=== PATIENT | female | born 1950 | race Caucasian/White ===

== ENCOUNTER 2018-04-05 05:46 | Inpatient (IN) | payer OTHER ==
--- NOTE | 2018-04-04 18:19 | PDANEPAE ---
ANE History of Present Illness back pain, right leg ANE Past Medical History - Cardiovascular History Hx Hypertension: No Hx Arrhythmias: No Hx Chest Pain: No Hx Coronary Artery / Peripheral Vascular Disease: No Hx CHF / Valvular Disease: No Hx Palpitations: No - Pulmonary History Hx COPD: No Hx Asthma/Reactive Airway Disease: No Hx Recent Upper Respiratory Infection: No Hx Oxygen in Use at Home: No Hx Sleep Apnea: No Sleep Apnea Screening Result - Last Documented: Negative Pulmonary History Comment: PNEUMONIA X1 IN PAST - Neurologic History Hx Cerebrovascular Accident: No Hx Seizures: No Hx Dementia: No - Endocrine History Hx Diabetes: No Hypothyroid: Yes Hyperthyroid: No Obesity: no Endocrine History Comment: HYPOTHYROID - Renal History Hx Renal Disorders: No - Liver History Hx Hepatic Disorders: No - Neurological & Psychiatric Hx Hx Neurological and Psychiatric Disorders: Yes Neurological / Psychiatric History Comment: DEPRESSION - ZOLOFT - Cancer History Hx Cancer: No - Congenital Disorder History Hx Congenital Disorders: No - GI History GERD: no Hx Gastrointestinal Disorders: No - Other Health History Other Health History: NEG. SEVERE ANEMIC IN PAST. TOOK IRON RECENTLY FOR MILD SHIFT - HAD GASTRIC BYPASS - Chronic Pain History Chronic Pain: Yes (BACK & R LEG) - Surgical History Prior Surgeries: R KNEE SCOPE. TUBAL LIGATION. COLECTOMY. LASIK. GASTRIC BYPASS. BLEPHOROPLASTY. HYSTERECTOMY. PHLEBECTOMY. BREAST REDUCTION. BRACHIOPLASTY. STOMACH & THIGH REDUCTION. FACELIFT ANE Review of Systems Review of systems is: negative Review of Systems: - Exercise capacity METS (RN): 4 METS ANE Patient History - Allergies Allergies/Adverse Reactions: cefaclor [From Ceclor] Allergy (Verified 03/22/18 11:08) Rash/Itching morphine Allergy (Verified 03/22/18 11:08) Itching - Home Medications Home medications: home medication list seen and reviewed Home Medications: Acetaminophen [Tylenol 650/20.3ML Oral Liq (*)] 650 mg PO Q4HRS PRN 03/22/18 [ Last Taken Unknown] Biest Compounded Caps 1 each PO DAILY 03/22/18 [Last Taken Unknown] Herbals/Supplements -Info Only 1 ea PO DAILY 03/22/18 [Last Taken Unknown] Hydrocodone/Acetaminophen [[place] 5/325 (*)] 1 tab PO DAILY PRN 03/22/18 [Last Taken Unknown] Levothyroxine [Synthroid 175 mcg (*)] 175 mcg PO DAILY06 03/22/18 [Last Taken Unknown] Liothyronine Sodium [Cytomel 5 mcg (*)] 10 mcg PO DAILY 03/22/18 [Last Taken Unknown] Sertraline HCl [Zoloft 100mg (*)] 300 mg PO DAILY 03/22/18 [Last Taken Unknown] - NPO status NPO Status: no food or drink >8 hours - Anes Hx Anes Hx: slow to awaken from anesthesia - Smoking Hx Smoking Status: Never smoked Marijuana use: No - Alcohol Use Alcohol Use: Rarely - Family Anes Hx Family Anes Hx: none Family Hx Anesthesia Complications: NEG ANE Labs/Vital Signs - Vital Signs Height: 170.18 cm Weight: 83.461 kg ANE Physical Exam - Airway Neck exam: FROM Mallampati Score: Class 2 Mouth exam: normal dental/mouth exam - Pulmonary Pulmonary: no respiratory distress, clear to auscultation - Cardiovascular Cardiovascular: regular rate and rhythym, no murmur, rub, or gallop - ASA Status ASA Status: II ANE Anesthesia Plan Anesthesia Plan: general endotracheal anesthesia (neuro monitoring)
[2018-04-05] MEDS ORDERED: ACETAMINOPHEN 500 MG TAB PO ONE (05:52)
[2018-04-05] MEDS ORDERED: GABAPENTIN 300 MG CAP PO ONE (05:52)
[2018-04-05] MEDS ORDERED: ceFAZolin 2 GM/DEXTROSE 100 ML IV ONE (05:52)
[2018-04-05] MEDS ORDERED: LR 1,000 ML IV ONE (05:53)
[2018-04-05] MEDS ORDERED: LIDOCAINE 1% 2 ML INJ ID PRN (05:53)
[2018-04-05] MEDS ORDERED: PROPOFOL 200 MG/20 ML VIAL ONE (06:42)
[2018-04-05] MEDS ORDERED: LIDOCAINE 2% 5 ML SDV ONE (06:42)
[2018-04-05] MEDS ORDERED: SUCCINYLCHOLINE CHLORIDE 200 MG/10 ML SYR IVP ONE (06:42)
[2018-04-05] MEDS ORDERED: fentaNYL 250 MCG/5 ML INJ ONE (06:42)
[2018-04-05] MEDS ORDERED: BACITRACIN 50,000 UNITS/10 ML SYR IRR ONE (06:46)
[2018-04-05] MEDS ORDERED: BUPIVACAINE/EPI 0.25% 30 ML SDV ONE (06:46)
[2018-04-05] MEDS ORDERED: THROMBIN (BOVINE) 5,000 UNIT VIAL TP ONE (06:46)
[2018-04-05] MEDS ORDERED: CHLORHEXIDINE GLUC HIBICLENS 118 ML BTL TP ONE (06:46)
--- NOTE | 2018-04-05 07:11 | PDHPUP ---
History & Physical Update H&P update statement: This history and physical update is based on an assessment of the patient which was completed after admission or registration (within 24 hours), but prior to the surgery/procedure. H&P update: H&P reviewed & patient examined, no change in patient's condition since H&P completed
[2018-04-05] MEDS ORDERED: MIDAZOLAM 2 MG/2 ML VIAL ONE (07:33)
[2018-04-05] MEDS ORDERED: ONDANSETRON 4 MG/2 ML VIAL IVP PRN (08:04)
[2018-04-05] MEDS ORDERED: MAGNESIUM HYDROXIDE 30 ML UDCUP PO PRN (08:04)
[2018-04-05] MEDS ORDERED: diphenhydrAMINE 25 MG CAP PO PRN (08:04)
[2018-04-05] MEDS ORDERED: BISACODYL 10 MG SUPP PR PRN (08:04)
[2018-04-05] MEDS ORDERED: LACTULOSE 20 GM/30 ML UDCUP PO PRN (08:04)
[2018-04-05] MEDS ORDERED: HYDROmorphONE/DILAUDID 1 MG/ML INJ IVP PRN (08:04)
[2018-04-05] MEDS ORDERED: ONDANSETRON DISINTEGRATING 4 MG TAB PO PRN (08:04)
[2018-04-05] MEDS ORDERED: NS 1,000 ML IV SCH (08:15)
[2018-04-05] MEDS ORDERED: ePHEDrine SULFATE 25 MG/5 ML SYR ONE (08:31)
--- NOTE | 2018-04-05 09:08 | PDMN ---
Medical Necessity Medical necessity: Pt meets inpt criteria per MD order and [facility] [place] S-820, Lumbar Fusion, 3 days, Medicare inpt only list. 67 y/o w/lumbar stenosis admitted for L4/5 TLIF and post-op care.
[2018-04-05] MEDS ORDERED: NALOXONE HCL 0.4 MG/ML INJ IVP PRN (11:18)
[2018-04-05] MEDS ORDERED: MEPERIDINE 25 MG/0.5 ML AMP IVP PRN (11:18)
[2018-04-05] MEDS ORDERED: PROMETHAZINE HCL 25 MG/ML INJ IVP PRN (11:18)
--- NOTE | 2018-04-05 11:19 | POSTANESTH ---
Post Anesthetic Evaluation Cardiovascular Status: Normal, Stable Respiratory Status: Normal, Stable Level of Consciousness/Mental Status: Moderately Sleepy Pain Control: Adequate, Prn Tx Ordered Nausea/Vomiting Control: Adequate, Prn Tx Ordered Complications Possibly Related to Anesthesia: None Noted
--- NOTE | 2018-04-05 11:22 | POSTOPPROG ---
Post Op Note Date of Operation: 04/05/18 Surgeon: Tank Hawthorne Experience Planning Strategist: Carmen Carson NP Anesthesiologist: Savanah Anesthesia: GET(General Endotracheal) Pre-op Diagnosis: Lumbar stenosis Procedure: L4-5 TLIF Inf/Abcess present in the surg proc area at time of surgery?: No Depth: Deep Incisional (Fascial) EBL: 100-500 Total fluids administered: see anesthesia Complications: none Drains: Michael Mesa Date of Surgery: 04/05/18 Post Op Day: 0 Assessment/Plan: Assessment: 67 yr old F s/p L4-5 TLIF Plan: -Admit med surg -PT/OT -Pain management -Post op xrays in am -Karthik to bulb suction Please call neurosurgery with questions/concerns Subjective: waking up in pacu Objective: waking up in pacu CORTEZ x4 5/5 BLE Dressing CDI KARTHIK patent Appropriate Neuro Check Frequency Ordered: Yes
[2018-04-05] MEDS ORDERED: fentaNYL 100 MCG/2 ML INJ ONE (11:52)
[2018-04-05] MEDS ORDERED: HYDROmorphONE/DILAUDID 2 MG/ML INJ ONE (11:52)
[2018-04-05] MEDS: fentaNYL 100 MCG/2 ML INJ IVP PRN ×2 (11:53→12:17)
[2018-04-05] MEDS: GABAPENTIN 300 MG CAP PO SCH ×2 (13:00→16:11)
[2018-04-05] MEDS: METHOCARBAMOL 750 MG TAB PO PRN ×2 (13:00→19:10)
[2018-04-05] MEDS: oxyCODONE IR 5 MG TAB PO PRN ×4 (13:00→23:23)
[2018-04-05] MEDS: ACETAMINOPHEN 500 MG TAB PO SCH ×2 (13:01→21:23)
[2018-04-05] MEDS: ceFAZolin 2 GM/DEXTROSE 100 ML IV SCH ×3 (13:05→21:23)
[2018-04-05] MEDS: LIOTHYRONINE SODIUM 5 MCG TAB PO SCH (13:15)
[2018-04-05] MEDS: FAMOTIDINE 20 MG TAB PO SCH ×2 (13:15→21:23)
[2018-04-05] MEDS: SERTRALINE HCL 100 MG TAB PO SCH (13:16)
[2018-04-05] MEDS: SENNOSIDES/DOCUSATE SODIUM TAB PO SCH ×2 (13:16→21:23)
--- NOTE | 2018-04-05 18:00 | GOP ---
DATE OF OPERATION: 04/05/2018 SURGEON: Mariposa Hawthorne MD NEUROSURGEON: Mariposa Hawthorne MD SNOW REMOVAL SUPERVISOR: Carmen Carson, Nurse Practitioner. PREOPERATIVE DIAGNOSIS: Lumbar spondylosis, severe degenerative tilt of L4 on L5 with a right L4 rad iculopathy, and severe compression of the right neural foramen at L4-5. POSTOPERATIVE DIAGNOSIS: Lumbar spondylosis, severe degenerative tilt of L4 on L5 with a right L4 ra diculopathy, and severe compression of the right neural foramen at L4-5. PROCEDURE PERFORMED: Posterior lateral intervertebral arthrodesis at L4-5 ([id number]), posterior nonsegm ental instrumentation across a single interspace L4-5 ([id number]), microscope, same incision bone graft h arvest, spinal stereotaxy, placement of biomechanical intervertebral device L4-5, same incision bone graft harvest. FINDINGS: Consistent with diagnosis. SPECIMENS: Non. ESTIMATED BLOOD LOSS: 150 cc. INDICATIONS: The patient is a middle-aged female with terrible pain on the right-hand side due to co mpression of the right L4 nerve root. She had some left-sided symptoms as well, but the right was wi thout question the dominant source of her pain, and she failed conservative measures. Her MRI demons trated degenerative scoliosis that included L1-2, 2-3, 3-4 above, but there was a severe degenerative tilt of L4 on L5 with complete collapse of the neural foramen on the right-hand side, and I thought this was the cause of her pain. The other levels would be more likely to cause left-sided pain than right-sided pain. I suggested a single-level fusion. The risk of continued symptoms, nerve injuries , further progression of her scoliosis, possible need for additional spine surgery, including instrum entation at the other levels, risk of screw and hardware malposition, malfunction, continued symptoms , CSF leak was discussed. She knew there was risk of adjacent segment disease as well. She wanted t o proceed despite these risks. DESCRIPTION OF PROCEDURE: The patient was taken to the operating room. She placed in supine positio n. General anesthesia was begun. She was flipped prone onto the Michael table. Care was taken to p ad all points of contact. Her back was sterilely prepped and draped in usual fashion. A localizing x-ray was taken. We made a midline incision that measured about 5.5 cm long above the L4-5 interspace. We had extend it to about 6 cm once we got down to the spine. The subcutaneous tissues were dissected using Bovie cautery down to the fascia and a subperiosteal dissection was made down the inferior lamina of L3. T he lamina of L4 and L5 was exposed. We had decorticated and denuded the bilateral hypertrophic facet s of L4-5. The L4-5 facet joint on the right-hand side was totally collapsed. The L4 transverse pro cess was nearly kissing the L5 transverse processes, it was rather impressive. On the left-hand side , it was more typical. We performed an O-arm spin and using frame the SteAliveCor stereotaxy, placed pedicle screws bilaterally at L4-5. We distracted between L4 and L5 on the right-hand side, left the left side somewhat neutral . We got good reduction of the terrible degenerative tilt. She was distracted by over a centimeter on the right-hand side. We got good alignment. We locked the construct in this position, removed th e soft tissue of the bone at L4-5, harvested the inferior L4 spinous process for autologous grafting purposes, and drilled bilateral laminectomy at L4-5 to decompress the thecal sac. We harvested this bone for autologous grafting purposes, and under the microscope, we decompressed both of the lateral recesses at L4-5 on the right-hand side. We completely removed the facet and decompressed the exitin g L4 nerve root, and got a great decompression there. We then swept the thecal sac medially from the right-hand side and then removed the disk and the cartilaginous endplates. We roughened the subchon dral bone to create arthrodesis and chose an expandable 7 x 28 mm device. It was inserted at L4-5. Bone autograft and BMP were placed ventral to the device. A nice fit was obtained. It had been expa nded under fluoroscopic guidance and it fit perfectly. We then took time to decorticate the remainin g posterior lateral bone bilaterally at L4-5 and placed bone autograft and BMP posterolaterally bilat erally, followed by a subfascial drain. We then closed the incision in multiple layers using Vicryl sutures. Steri-Strips were applied to the skin. The patient was reversed from anesthesia, extubated , and transferred to recovery room in stable condition. There were no complications. COMPLICATIONS: None. INSTRUMENTATION USE: VoltDBtronic 5.5 mm Solera. We used a 7 x 28 mm cage and we used an extra-small b one morphogenic protein. /[id number]/MODL
[2018-04-06] MEDS: oxyCODONE IR 5 MG TAB PO PRN ×4 (04:43→21:57)
[2018-04-06 05:12] LABS: PLATELET COUNT 222 10^3/uL (150-400)
[2018-04-06] MEDS: ACETAMINOPHEN 500 MG TAB PO SCH ×3 (05:47→21:56)
[2018-04-06] MEDS: LEVOTHYROXINE 175 MCG TAB PO SCH (05:48)
[2018-04-06] MEDS: GABAPENTIN 300 MG CAP PO SCH ×3 (05:50→22:09)
[2018-04-06] MEDS: METHOCARBAMOL 750 MG TAB PO PRN ×2 (05:56→14:30)
[2018-04-06] MEDS: LIOTHYRONINE SODIUM 5 MCG TAB PO SCH (08:13)
[2018-04-06] MEDS: FAMOTIDINE 20 MG TAB PO SCH ×2 (08:13→21:58)
[2018-04-06] MEDS: POLYETHYLENE GLYCOL 3350 17 GM PKT PO PRN (08:14)
[2018-04-06] MEDS: SERTRALINE HCL 100 MG TAB PO SCH (08:14)
[2018-04-06] MEDS: SENNOSIDES/DOCUSATE SODIUM TAB PO SCH ×2 (08:14→21:58)
--- NOTE | 2018-04-06 08:17 | NEUSURGPN ---
Date of Surgery: 04/05/18 Post Op Day: 1 Assessment/Plan: Assessment: 67 yr old F s/p L4-5 TLIF POD#1 Plan: -PT/OT -Pain management -Post op xrays pending for today -Remove ALAN drain -Dr Hawthorne saw patient as well Please call neurosurgery with questions/concerns Subjective: Doing well, eating breakfast. Objective: AxO x3 MAEx4 5/5 BLE Sensation intact to light touch BLE Dressing CDI, incision CDI with steri strips ALAN patent Neuro Check Frequency: per routine Urinary Catheter in Place: No Catheter Insertion Date: 04/05/18 - Physician Discussed Patient with : Christoph Patient Seen by : Christoph Neurosurgery Physical Exam - Vitals, I&O, Labs I and O 04/05/18 04/06/18 04/07/18 05:59 05:59 05:59 Intake Total 2225 Output Total 1430 250 Balance 795 -250 Weight 83.461 kg 83.461 kg Intake: Oral (ml) 10 IV Intake (ml) 1300 IV Infused (ml) 915 Ns 1,000 ml @ 75 mls/hr 915 IV CONT SIMONE Rx#: [id number] Output: Urine (ml) 1250 250 Catheter 1250 250 Estimated Blood Loss (ml) 150 ALAN Drain Output (ml) 30 Back Michael Mes[place] 30 Other: Intake Quantity Yes Sufficient Vital Signs Temp Pulse Resp BP Pulse Ox 36.4 C 78 16 122/65 H 94 04/06/18 07:56 04/06/18 07:56 04/06/18 07:56 04/06/18 07:56 04/06/18 07:56 Laboratory Results 04/06/18 04:52 04/06/18 04:52 ICD10 Worksheet Patient Problems: Problems Problem Status Onset Lumbar stenosis Acute - ICD10 Problem Qualifiers (1) Lumbar stenosis Qualifiers: Neurogenic claudication status: unspecified Qualified Code(s): M48.061 - Spinal stenosis, lumbar region without neurogenic claudication
--- NOTE | 2018-04-06 13:47 | ASMTCMCOM ---
CM Note CM Note Notes: Pt is a 67 y/o female admitted for DDD, radiculopathy and back pain. Therapies have cleared pt to d/c without any needs. CM available for changes. Plan: Independent Date Signed: 04/06/2018 01:46 PM Electronically Signed By:MARIA A Majano
[2018-04-07] MEDS: oxyCODONE IR 5 MG TAB PO PRN ×3 (03:23→13:05)
[2018-04-07] MEDS: ACETAMINOPHEN 500 MG TAB PO SCH ×2 (06:15→13:04)
[2018-04-07] MEDS: LEVOTHYROXINE 175 MCG TAB PO SCH (06:15)
[2018-04-07] MEDS: GABAPENTIN 300 MG CAP PO SCH ×2 (06:42→13:05)
[2018-04-07 07:46] VITALS: BP 123/75
[2018-04-07] MEDS: SENNOSIDES/DOCUSATE SODIUM TAB PO SCH (08:37)
[2018-04-07] MEDS: SERTRALINE HCL 100 MG TAB PO SCH (08:38)
[2018-04-07] MEDS: LIOTHYRONINE SODIUM 5 MCG TAB PO SCH (08:39)
[2018-04-07] MEDS: FAMOTIDINE 20 MG TAB PO SCH (08:39)
[2018-04-07] MEDS: METHOCARBAMOL 750 MG TAB PO PRN ×2 (08:45→13:04)
[2018-04-07] MEDS: POLYETHYLENE GLYCOL 3350 17 GM PKT PO PRN (08:46)
--- NOTE | 2018-04-07 08:55 | NEUSURGPN ---
Date of Surgery: 04/05/18 Post Op Day: 2 Assessment/Plan: 67 yr old F s/p L4-5 TLIF POD#2 Plan: -Neuro stable -PT/OT -Pain controlled -Post op xrays: hardware in good placement -ALAN drain removed on 04/06 -Home later today if progresses well, if not then tomorrow -Please call neurosurgery with questions/concerns Discussed with Dr. Hawthorne. Subjective: Galindo concentrated at the surgical site. No LE symptoms. Objective: Awake. Alert. PERRL. EOMI Facial expression symmetrical Muscle strength full at 5/5 Sensation intact Catheter Insertion Date: 04/05/18 - Physician Discussed Patient with : Christoph Neurosurgery Physical Exam - Vitals, I&O, Labs I and O 04/06/18 04/07/18 04/08/18 05:59 05:59 05:59 Intake Total 2225 950 Output Total 1430 260 Balance 795 690 Weight 83.461 kg Intake: Oral (ml) 10 950 IV Intake (ml) 1300 IV Infused (ml) 915 Ns 1,000 ml @ 75 mls/hr 915 IV CONT SIMONE Rx#: [id number] Output: Urine (ml) 1250 250 Catheter 1250 250 Estimated Blood Loss (ml) 150 ALAN Drain Output (ml) 30 10 Back Michael [place] 30 10 Other: Intake Quantity Yes Yes Sufficient Output Comment Toilet MISSED HAT Number of Voids Toilet 1 1 Vital Signs Temp Pulse Resp BP Pulse Ox 36.7 C 71 16 123/75 H 93 04/07/18 07:45 04/07/18 07:45 04/07/18 07:45 04/07/18 07:45 04/07/18 07:45 Laboratory Results 04/06/18 04:52 04/06/18 04:52 ICD10 Worksheet Patient Problems: Problems Problem Status Onset Lumbar stenosis Acute
[2018-04-08] MEDS ORDERED: ENOXAPARIN 40 MG/0.4 ML SYR SC SCH (09:00)
== END 2018-04-07 13:23 | disposition home or self-care (01) | DRG 455 ==
LOC: F3N 05:46
PROVIDERS: ADMIT Neurological Surgery; ATTEND Neurological Surgery
PROC: 4A1004G Monitoring of Central Nervous Electrical Activity, Intraoperative, Open Approach (ICD-10-PCS; principal; 2018-04-05 07:21)
PROC: 01NB0ZZ Release Lumbar Nerve, Open Approach (ICD-10-PCS; principal; 2018-04-05 07:21)
PROC: 00NY0ZZ Release Lumbar Spinal Cord, Open Approach (ICD-10-PCS; principal; 2018-04-05 07:21)
PROC: 0SG00AJ Fusion of Lumbar Vertebral Joint with Interbody Fusion Device, Posterior Approach, Anterior Column, Open Approach (ICD-10-PCS; principal; 2018-04-05 07:21)
PROC: 0SG0071 Fusion of Lumbar Vertebral Joint with Autologous Tissue Substitute, Posterior Approach, Posterior Column, Open Approach (ICD-10-PCS; principal; 2018-04-05 07:21)
DX: M48.061 Spinal stenosis, lumbar region without neurogenic claudication (principal); M47.26 Other spondylosis with radiculopathy, lumbar region; M41.26 Other idiopathic scoliosis, lumbar region; M51.36 Other intervertebral disc degeneration, lumbar region; E03.9 Hypothyroidism, unspecified
CPT/HCPCS: 97116-GP; 97161-GP; 97166-GO; 97530-GP; 97535-GO; C1713; J0330; J0690; J1170; J2250; J2704; J3010